=== PATIENT | female | born 1980 | race African-American/Black ===

== ENCOUNTER 2018-07-09 18:36 | Emergency (ER) | payer OTHER ==
[2018-07-09 19:00] VITALS: BP 119/79; PULSE 62; TEMP 98.2; BMI 31.2
--- NOTE | 2018-07-09 19:27 | PDOC ---
History of Present Illness - General Chief Complaint: Blood Pressure Problem Stated Complaint: flank pain/disuria. Time Seen by Provider: 07/09/18 19:24 - History of Present Illness Initial Comments: 07/09/18 19:26 Patient denies N/V, F,C, CP, SOB, urinary complaints, abdominal pain, diarrhea, constipation, lightheadedness, weakness, sensory changes. PMHx: as noted above ROS: as noted SHx: Allergies: Past History - Past Medical History Allergies/Adverse Reactions: Allergies Allergy/AdvReac Type Severity Reaction Status Date / Time No Known Allergies Allergy Verified 08/17/13 15:20 Home Medications: Ambulatory Orders Vitamins ([facility]) - 1 tab PO DAILY 07/03/13 Polyethylene Glycol 3350 [Miralax 255 gm Btl -] 17 gm PO DAILY #1 bottle Polyethylene Glycol 3350 [Miralax 255 gm Btl -] 17 gm PO DAILY #1 bottle Asthma: No Cancer: No Cardiac Disorders: No COPD: No CHF: No Diabetes: No HTN: No Seizures: No Thyroid Disease: No - Reproductive History (#): 7 Para: 1 Cervical CA: No Dysfunctional Uterine Bleeding: No Ectopic : No Endometrial CA: No Polycystic Ovaries: No Therapeutic (s) & number: Yes Tubal Ligation: No Spontaneous : 2 - Suicide/Smoking/Psychosocial Hx Smoking Status: No Smoking History: Current every day smoker Have you smoked in the past 12 months: Yes Number of Cigarettes Smoked Daily: 10 If you are a former smoker, when did you quit?: 2 WKS AGO Information on smoking cessation initiated: No Hx Alcohol Use: No Drug/Substance Use Hx: No Substance Use Type: None Hx Substance Use Treatment: No Review of Systems - Review of Systems Comments:: 07/09/18 19:26 GENERAL/CONSTITUTIONAL: No fever or chills. No weakness. HEAD, EYES, EARS, NOSE AND THROAT: No change in vision. No ear pain or discharge. No sore throat. CARDIOVASCULAR: No chest pain or shortness of breath RESPIRATORY: No cough, wheezing, or hemoptysis. GASTROINTESTINAL: No nausea, vomiting, diarrhea or constipation. GENITOURINARY: No dysuria, frequency, or change in urination. MUSCULOSKELETAL: No joint or muscle swelling or pain. No neck or back pain. SKIN: No rash NEUROLOGIC: No headache, vertigo, loss of consciousness, or change in strength/ sensation. ENDOCRINE: No increased thirst. No abnormal weight change HEMATOLOGIC/LYMPHATIC: No anemia, easy bleeding, or history of blood clots. ALLERGIC/IMMUNOLOGIC: No hives or skin allergy. *Physical Exam - Vital Signs Last Vital Signs Temp Pulse Resp BP Pulse Ox 98.2 F 62 18 119/79 100 07/09/18 18:36 07/09/18 18:36 07/09/18 18:36 07/09/18 18:36 07/09/18 18:36 - Physical Exam Comments: 07/09/18 19:26 GENERAL: Awake, alert, and fully oriented, in no acute distress HEAD: No signs of trauma, normocephalic, atraumatic EYES: PERRLA, EOMI, sclera anicteric, conjunctiva clear ENT: Auricles normal inspection, hearing grossly normal, nares patent, oropharynx clear without exudates. Moist mucosa NECK: Normal ROM, supple, no lymphadenopathy, JVD, or masses LUNGS: No distress, speaks full sentences, clear to auscultation bilaterally HEART: Regular rate and rhythm, normal S1 and S2, no murmurs, rubs or gallops, peripheral pulses normal and equal bilaterally. ABDOMEN: Soft, nontender, normoactive bowel sounds. No guarding, no rebound. No masses EXTREMITIES : Normal inspection, Normal range of motion, no edema. No clubbing or cyanosis. NEUROLOGICAL: Cranial nerves II through XII grossly intact. Normal speech, normal gait, no focal sensorimotor deficits SKIN: Warm, Dry, normal turgor, no rashes or lesions noted Moderate Sedation - Procedure Monitoring Vital Signs: Procedure Monitoring Vital Signs Temperature 98.2 F 07/09/18 18:36 Pulse Rate 62 07/09/18 18:36 Respiratory Rate 18 07/09/18 18:36 Blood Pressure 119/79 07/09/18 18:36 O2 Sat by Pulse Oximetry (%) 100 07/09/18 18:36 *DC/Admit/Observation/Transfer - Referrals - Patient Instructions Printed Discharge Instructions: DI for Flank Pain Additional Instructions: Please return to the emergency department with any new or worsening symptoms or concerns. Please follow up with your primary care physician within 72 hours. - Post Discharge Activity - Attestations Physician Attestion: 07/09/18 19:26 I attest to the information provided in this note.
== END 2018-07-09 20:01 | disposition left against medical advice (07) ==
LOC: JER 18:36
DX: Z53.21 Procedure and treatment not carried out due to patient leaving prior to being seen by health care provider (principal)
CPT/HCPCS: 99281-25

== ENCOUNTER 2021-07-12 07:10 | Inpatient (IN) | payer BC ==
[2021-07-12 08:32] VITALS: BMI 35.6
[2021-07-12] MEDS ORDERED: CITRIC ACID/SODIUM CITRATE 30 ML UNIT-DOSE CUP PO ONE (08:42)
[2021-07-12] MEDS ORDERED: ELECTROLYTE-148 SOLN 500 ML IV ONE (08:42)
[2021-07-12] MEDS ORDERED: ELECTROLYTE-148 SOLN 1,000 ML IV SCH (08:45)
[2021-07-12] MEDS ORDERED: morphine SULFATE/PF 1 MG/2 ML (2cc Syringe - QUVA) ONE (10:28)
[2021-07-12] MEDS ORDERED: PHENYLEPHRINE HCL 10 MG/1 ML SINGLE DOSE VIAL ONE (10:28)
[2021-07-12] MEDS ORDERED: ePHEDrine SULFATE 50 MG/1 ML AMPULE ONE (10:34)
[2021-07-12] MEDS ORDERED: MIDAZOLAM HCL 2 MG/2 ML SINGLE DOSE VIAL ONE ×2 (11:17→11:23)
[2021-07-12 11:42] LABS: CORD HCO3 24.6 mmHg (20-29); CORD PCO2 58.5 mmHg (30-78); CORD pH 7.241 (7.14-7.44)
[2021-07-12 11:44] LABS: CORD BASE EXCESS -3.6 mmol/L (0-2); CORD HCO3 22.3 mmHg (20-29); CORD PCO2 42.9 mmHg (30-78); CORD pH 7.333 (7.14-7.44)
[2021-07-12] MEDS ORDERED: IBUPROFEN 800 MG/8 ML IJ IVPB PRN (11:59)
[2021-07-12] MEDS ORDERED: SENNOSIDES/DOCUSATE COMBO (SENNA PLUS) TABLET (UD) PO PRN (11:59)
[2021-07-12] MEDS ORDERED: SIMETHICONE 80 MG TAB.CHEW (FP) PO PRN (11:59)
[2021-07-12] MEDS ORDERED: ACETAMINOPHEN 325 MG TABLET (FP) PO PRN ×2 (11:59→12:02)
[2021-07-12] MEDS ORDERED: METHYLERGONOVINE MALEATE 0.2 MG/1 ML AMP IM PRN (11:59)
[2021-07-12] MEDS ORDERED: ONDANSETRON 4 MG/2 ML VIAL IVPUSH PRN (12:02)
[2021-07-12] MEDS ORDERED: IBUPROFEN 600 MG TABLET (FP) PO PRN (12:02)
[2021-07-12] MEDS: OXYTOCIN 20 UNITS in 0.9% NS 20 UNIT/1,000 ML INFUS.BAG IV SCH ×2 (12:20→22:27)
[2021-07-12] MEDS ORDERED: DEXTROSE 5%-WATER - 50 ML IVPB ONE (17:11)
[2021-07-12] MEDS ORDERED: ceFAZolin SODIUM 1 GM VIAL ONE (17:11)
[2021-07-12] MEDS: CEFAZOLIN 1 GM in DEXTROSE 5%-WATER - 1 GM/50 ML IVPB IVPB SCH (17:28)
[2021-07-12] MEDS ORDERED: CEFAZOLIN 1 GM/D5W 1 GM/50 ML BAG IVPB SCH (18:00)
[2021-07-13] MEDS ORDERED: oxyCODONE HCL 5 MG TABLET PO PRN ×2 (00:04)
[2021-07-13] MEDS ORDERED: DEXTROSE 5%-WATER - 50 ML IVPB ONE ×2 (01:59→09:20)
[2021-07-13] MEDS ORDERED: ceFAZolin SODIUM 1 GM VIAL ONE ×2 (02:00→09:21)
[2021-07-13] MEDS: CEFAZOLIN 1 GM in DEXTROSE 5%-WATER - 1 GM/50 ML IVPB IVPB SCH ×2 (02:02→09:29)
[2021-07-13 07:44] LABS: BASO % 0.3 % (0-2.0); EOS % 0.5 % (0-4.5); HEMATOCRIT 33.7 % (32.4-45.2); HEMOGLOBIN 10.8 GM/dL (10.7-15.3); LYMPH % 13.5 % (8-40); MCH 26.9 pg (25.7-33.7); MCHC 32.1 g/dl (32.0-36.0); MEAN CELL VOLUME 83.9 fl (80-96); MEAN PLT VOLUME 7.7 fl (7.5-11.1); MONO % 10.4 % (3.8-10.2); NEUT % 75.3 % (42.8-82.8); PLATELET COUNT 376 10^3/uL (134-434); RBC 4.02 M/mm3 (3.60-5.2); RDW 16.5 % (11.6-15.6); WHITE BLOOD COUNT 12.5 K/mm3 (4.0-10.0)
[2021-07-13] MEDS: ENOXAPARIN NA (PORCINE) 40 MG/0.4 ML DISP.SYRIN SQ SCH (09:29)
[2021-07-13] MEDS: PRENATAL VITAMINS W/ FOLIC ACID TABLET (FP) PO SCH (09:29)
[2021-07-13] MEDS: IBUPROFEN 600 MG TABLET (FP) PO PRN ×3 (11:35→23:57)
[2021-07-13] MEDS ORDERED: BISACODYL 10 MG SUPP.RECT RC PRN (12:04)
[2021-07-13] MEDS: FERROUS SO4 325 MG TABLET (FP) PO SCH (17:15)
[2021-07-14] MEDS: IBUPROFEN 600 MG TABLET (FP) PO PRN ×3 (06:46→21:00)
[2021-07-14] MEDS: FERROUS SO4 325 MG TABLET (FP) PO SCH ×2 (09:09→17:17)
[2021-07-14] MEDS: ENOXAPARIN NA (PORCINE) 40 MG/0.4 ML DISP.SYRIN SQ SCH (09:09)
[2021-07-14] MEDS: PRENATAL VITAMINS W/ FOLIC ACID TABLET (FP) PO SCH (09:09)
[2021-07-15] MEDS: IBUPROFEN 600 MG TABLET (FP) PO PRN ×2 (04:28→08:28)
[2021-07-15] MEDS: FERROUS SO4 325 MG TABLET (FP) PO SCH (07:48)
[2021-07-15 07:59] VITALS: BP 134/92; PULSE 71; TEMP 97.9
[2021-07-15 08:16] LABS: BASO % 0.5 % (0-2.0); EOS % 0.7 % (0-4.5); HEMATOCRIT 29.9 % (32.4-45.2); HEMOGLOBIN 9.7 GM/dL (10.7-15.3); LYMPH % 21.8 % (8-40); MCH 27.3 pg (25.7-33.7); MCHC 32.4 g/dl (32.0-36.0); MEAN CELL VOLUME 84.3 fl (80-96); MEAN PLT VOLUME 7.5 fl (7.5-11.1); MONO % 11.2 % (3.8-10.2); NEUT % 65.8 % (42.8-82.8); PLATELET COUNT 404 10^3/uL (134-434); RBC 3.55 M/mm3 (3.60-5.2); RDW 17.1 % (11.6-15.6); WHITE BLOOD COUNT 9.1 K/mm3 (4.0-10.0)
[2021-07-15] MEDS: PRENATAL VITAMINS W/ FOLIC ACID TABLET (FP) PO SCH (10:07)
[2021-07-15] MEDS: ENOXAPARIN NA (PORCINE) 40 MG/0.4 ML DISP.SYRIN SQ SCH (10:09)
== END 2021-07-15 12:15 | disposition home or self-care (01) | DRG 788 ==
LOC: JLDR 07:10 → J3W 14:25
PROVIDERS: ADMIT Obstetrics & Gynecology; ATTEND Obstetrics & Gynecology
PROC: 10D00Z1 Extraction of Products of Conception, Low, Open Approach (ICD-10-PCS; principal; 2021-07-12)
DX: O40.3XX0 Polyhydramnios, third trimester, not applicable or unspecified (principal); O32.2XX0 Maternal care for transverse and oblique lie, not applicable or unspecified; O48.0 Post-term pregnancy; O99.02 Anemia complicating childbirth; D64.89 Other specified anemias; O99.824 Streptococcus B carrier state complicating childbirth; O69.81X0 Labor and delivery complicated by cord around neck, without compression, not applicable or unspecified; Z86.16 Personal history of COVID-19; Z3A.40 40 weeks gestation of pregnancy; Z37.0 Single live birth
CPT/HCPCS: 36415; 36600; 82803; 85025; 88307-TC; 94010